=== PATIENT | female | born 1940 | race Caucasian/White ===

== ENCOUNTER → 2023-12-21 12:40 | Outpatient (REF) | payer MEDICARE, BC, SELFPAY | LOC: WDC 12:40 | PROVIDERS: ATTENDING PHYSICIAN Family Medicine | DX: M81.0 Age-related osteoporosis without current pathological fracture (principal); Z12.31 Encounter for screening mammogram for malignant neoplasm of breast | CPT/HCPCS: 77063; 77067; 77080 ==

== ENCOUNTER → 2025-01-12 14:59 | Outpatient (REF) | payer MEDICARE, BC, SELFPAY | LOC: WDC 14:59 | PROVIDERS: ATTENDING PHYSICIAN Family Medicine | DX: Z12.31 Encounter for screening mammogram for malignant neoplasm of breast (principal) | CPT/HCPCS: 77063; 77067 ==

== ENCOUNTER → 2025-05-08 15:22 | Outpatient (REF) | payer MEDICARE, BC, SELFPAY | LOC: RAD 15:22 | PROVIDERS: ATTENDING PHYSICIAN Family Medicine; FAMILY PHYSICIAN Family Medicine | DX: M79.89 Other specified soft tissue disorders (principal); M79.605 Pain in left leg | CPT/HCPCS: 93971 ==